=== PATIENT | male | born 1975 | race Caucasian/White ===

== ENCOUNTER 2021-07-28 16:51 | Emergency (ER) | payer OTHER ==
[~2021-07-28] VITALS: Ht 172.7 cm; Wt 63.5 kg
[2021-07-28 17:45] LABS: BASOPHILS ABSOLUTE AUTO 0.03 K/mm3 (0.00-0.23); BASOPHILS PERCENT AUTO 0 % (0-2); EOSINOPHILS ABSOLUTE AUTO 0.18 K/mm3 (0.00-0.68); EOSINOPHILS PERCENT AUTO 2 % (0-6); Hematocrit 47.6 % (37.0-53.0); Hemoglobin 16.4 g/dL (13.5-17.5); IMMATURE GRAN ABSOLUTE AUTO 0.02 K/mm3 (0.00-0.10); IMMATURE GRAN PERCENT AUTO 0 % (0-1); LYMPHOCYTES ABSOLUTE AUTO 2.92 K/mm3 (0.84-5.20); LYMPHOCYTES PERCENT AUTO 34 % (21-46); MONOCYTES ABSOLUTE AUTO 0.62 K/mm3 (0.16-1.47); MONOCYTES PERCENT AUTO 7 % (4-13); Mean Corpuscular HGB 33.3 pg (26.0-34.0); Mean Corpuscular HGB Conc 34.5 g/dL (31.5-36.5); Mean Corpuscular Volume 97 fL (80-100); Mean Platelet Volume 9.8 fL (9.1-12.4); NEUTROPHILS ABSOLUTE AUTO 4.92 K/mm3 (1.96-9.15); NEUTROPHILS PERCENT AUTO 57 % (41-73); Platelet Count 315 K/mm3 (150-400); RDW Coefficient Variation 12.6 % (11.7-14.2); Red Blood Cell Count 4.93 M/mm3 (4.30-5.90); White Blood Cell Count 8.69 K/mm3 (4.00-11.30)
[2021-07-28 18:13] LABS: Alanine Aminotransfer (ALT/SGP 41 U/L (12-78); Albumin, Blood 4.1 g/dL (3.4-5.0); Albumin/Globulin Ratio 1.1 (0.8-1.8); Alk Phos 74 U/L (50-136); Anion Gap 7 mmol/L (6-16); Aspartate Aminotrans (AST/SGOT 20 U/L (12-37); Bilirubin, Total 0.5 mg/dL (0.1-1.0); Blood Urea Nitrogen 17 mg/dL (8-24); CO2, Blood 31 mmol/L (21-32); Calcium, Blood 9.3 mg/dL (8.5-10.1); Chloride, Blood 104 mmol/L (98-108); Creatinine, Blood 1.13 mg/dL (0.60-1.20); Globulin, Blood 3.9 g/dL (2.2-4.0); Glomerular Filtration Rate >60 (60-); Glucose, Blood 106 mg/dL (70-99); Potassium, Blood 3.3 mmol/L (3.5-5.5); Sodium, Blood 142 mmol/L (136-145)
[2021-07-28] MEDS ORDERED: FLUVOXAMINE MA100 M3 PO (19:23)
[2021-07-28] MEDS ORDERED: GABAPENTIN600 MG PO (19:23)
== END 2021-07-28 20:47 | disposition home or self-care (01) ==
LOC: ER 16:51
PROVIDERS: Physician Assistant
DX: R00.2 Palpitations (principal)
CPT/HCPCS: 71045; 80053; 83690; 84443; 84484; 85025; 93005; 93010; 99284-25

== ENCOUNTER 2024-01-04 09:17 | Day surgery (SDC) | payer OTHER ==
[~2024-01-04] VITALS: Ht 172.7 cm; Wt 68.5 kg
[~2024-01-04 09:17] MED LIST: FLUVOXAMINE MA100 M3 PO; GABAPENTIN600 MG PO
[2024-01-04] MEDS ORDERED: CeFAZolin Sodium 2,000 MG VIAL ONE (09:42)
[2024-01-04] MEDS ORDERED: NS 50 ML IV ONE (09:42)
[2024-01-04] MEDS ORDERED: Lactated Ringer's 1,000 ML IV ONE ×4 (09:42→12:08)
[2024-01-04] MEDS ORDERED: MORP15ER (09:57)
[2024-01-04] MEDS ORDERED: VIT D3-VIT K21 EACH (09:59)
[2024-01-04] MEDS ORDERED: MULVITA (09:59)
[2024-01-04] MEDS ORDERED: FISH OIL 1,0001 EA10 (10:00)
[2024-01-04] MEDS ORDERED: PROBIOTIC1 EA14 (10:00)
[2024-01-04] MEDS ORDERED: FentaNYL Citrate 50 MCG/ML 2 ML Injection ONE ×2 (10:51→12:18)
[2024-01-04] MEDS ORDERED: propofoL 20 ML IV ONE (10:51)
[2024-01-04] MEDS ORDERED: Ondansetron HCl 2 MG / ML 2ML Vial ONE (11:23)
[2024-01-04] MEDS ORDERED: Dexamethasone Sod Phos 10 MG/ML 1ML VIAL ONE (11:23)
[2024-01-04] MEDS ORDERED: Bupivacaine 0.5% W/EPI 1:200000 SDV 10ML INJ ONE ×2 (11:36)
[2024-01-04] MEDS ORDERED: HYDROcodone 5-APAP 325 TAB ONE (12:18)
--- NOTE | 2024-01-04 12:40 | NUR ---
01/04/24 1240 NNEKA CHURCH PT WAS UP TO THE BATHROOM. DOING WELL. PAIN 10/21. WILL GIVE IV MED
[2024-01-04 13:07] VITALS: BP 132/85
== END 2024-01-04 13:24 | disposition home or self-care (01) ==
LOC: ORSCSDS 09:17
PROVIDERS: Orthopaedic Surgery
PROC: 0PSQ34Z Reposition Left Metacarpal with Internal Fixation Device, Percutaneous Approach (ICD-10-PCS; principal; 2024-01-04 11:00)
DX: S62.347A Nondisplaced fracture of base of fifth metacarpal bone, left hand, initial encounter for closed fracture (principal); E05.90 Thyrotoxicosis, unspecified without thyrotoxic crisis or storm; F42.9 Obsessive-compulsive disorder, unspecified; Z79.899 Other long term (current) drug therapy; Z87.891 Personal history of nicotine dependence
CPT/HCPCS: A9270; J0690; J1100; J2405; J2704; J3010; J7120